=== PATIENT | male | born 1995 | race African-American/Black ===

== ENCOUNTER 2024-02-18 14:41 | Emergency (ER) | payer SELFPAY ==
[~2024-02-18] VITALS: Ht 180.3 cm; Wt 88.5 kg
[2024-02-18 14:41] VITALS: BP_SYST 102; PULSE 81; RESP 18; TEMP 97.7; O2SAT 99
[2024-02-18 15:29] VITALS: BP_SYST 102; PULSE 81; RESP 18; TEMP 97.7; O2SAT 99
== END 2024-02-18 15:26 ==
LOC: SED 14:41
DX: S00.01XA Abrasion of scalp, initial encounter (principal); S20.412A Abrasion of left back wall of thorax, initial encounter; S80.212A Abrasion, left knee, initial encounter; S80.211A Abrasion, right knee, initial encounter; W17.89XA Other fall from one level to another, initial encounter; Y93.89 Activity, other specified; Y92.89 Other specified places as the place of occurrence of the external cause; Y99.8 Other external cause status
CPT/HCPCS: 99283

== ENCOUNTER 2024-03-27 03:14 | Emergency (ER) | payer SELFPAY ==
[~2024-03-27] VITALS: Ht 180.3 cm; Wt 86.2 kg
[2024-03-27 03:23] VITALS: BP_SYST 131; PULSE 81; RESP 18; TEMP 98.2; O2SAT 98
[2024-03-27] MEDS ORDERED: IBUP-1969 PO (03:35)
[2024-03-27] MEDS ORDERED: ACET-2634 PO (03:35)
[2024-03-27] MEDS: HYDROcodone/ACETAMIN 10-325 MG TAB PO ONE (03:44)
== END 2024-03-27 03:58 | disposition left against medical advice (07) ==
LOC: SED 03:14
DX: M79.641 Pain in right hand (principal); Z79.899 Other long term (current) drug therapy
CPT/HCPCS: 99283